=== PATIENT | female | born 1980 | race Caucasian/White ===

== ENCOUNTER 2017-05-12 13:13 | Emergency (ER) | payer OTHER ==
[2017-05-12 13:14] VITALS: BMI 26.5
[2017-05-12 13:33] VITALS: BP 103/68; PULSE 86; RESP 16; TEMP 98.3; O2SAT 100
--- NOTE | 2017-05-12 14:18 | C.PDOC ---
History Of Present Illness A 37 year old female, who is 7 months , who denies any significant past medical history, presents to the emergency department for itchy throat, throat pain, headache, and a subjective fever, which began about 2 days ago. The patient denies any abdominal pain, nausea, dysuria, hematuria, or any other complaints at this time. Time Seen by Provider: 05/12/17 13:55 Chief Complaint (Nursing): Flu-like Symptoms Past Medical History Vital Signs: Last Vital Signs Temp 98.3 F 05/12/17 13:33 Pulse 86 05/12/17 13:33 Resp 16 05/12/17 13:33 BP 103/68 05/12/17 13:33 Pulse Ox 100 05/12/17 14:57 Family History: States: No Known Family Hx - Social History Hx Alcohol Use: No Hx Substance Use: No - Immunization History Hx Tetanus Toxoid Vaccination: No Hx Influenza Vaccination: No Hx Pneumococcal Vaccination: No Physical Exam - Physical Exam Additional Physical Exam Comments: Constitutional: No acute distress. Head: Normocephalic. Atraumatic. Eyes: PERRL. ENT: Moist mucous membranes. No erythema. No exudates. No lymphadenopathy. Neck: Supple. No neck stiffness/nuchal rigidity Cardiovascular: Regular rate. Radial pulse 2+ bilaterally. Chest: No tenderness. Respiratory: Clear to auscultation bilaterally. GI: Soft. Nontender. Non distended. Back: No CVA tenderness. Musculoskeletal: No tenderness or swelling of extremities. Skin: No rash. Neurologic: Alert, no focal deficit. ED Course And Treatment O2 Sat by Pulse Oximetry: 100 Medical Decision Making Medical Decision Making: Educated that acetaminophen is safe in . First dose administered here. Discharged home, f/u primary care, return to ED for worsening pain, fever, dyspnea, or any other problem. Disposition - Disposition Disposition: HOME/ ROUTINE Disposition Time: 14:18 Condition: STABLE Prescriptions: Acetaminophen [Tylenol 325mg tab] 2 tab PO Q4H #30 tab Instructions: Upper Respiratory Infection (ED) Forms: [facility] (Indonesian) - Clinical Impression Clinical Impression: URI (upper respiratory infection) - Scribe Statement The provider has reviewed the documentation as recorded by the Scribe Mimi James All medical record entries made by the Scribe were at my direction and personally dictated by me. I have reviewed the chart and agree that the record accurately reflects my personal performance of the history, physical exam, medical decision making, and the department course for this patient. I have also personally directed, reviewed, and agree with the discharge instructions and disposition.
== END 2017-05-12 14:32 | disposition home or self-care (01) ==
LOC: C.ER 13:13
DX: J06.9 Acute upper respiratory infection, unspecified (principal)

== ENCOUNTER 2017-08-13 15:41 | Emergency (ER) | payer OTHER ==
[2017-07-12 13:50] VITALS: BMI 28.1
[2017-08-13 16:34] LABS: SQUAMOUS EPITHIAL 1 /hpf (0-5); URINE BACTERIA FEW (<OCC); URINE BILIRUBIN NEGATIVE (NEGATIVE); URINE BLOOD 2+ (NEGATIVE); URINE CLARITY Clear (Clear); URINE COLOR Yellow (YELLOW); URINE GLUCOSE (UA) NORMAL (Normal); URINE LEUKOCYTE ESTERASE TRACE Leu/uL (Negative); URINE NITRATE NEGATIVE (NEGATIVE); URINE PROTEIN NEGATIVE (NEGATIVE); URINE UROBILINOGEN NORMAL mg/dL (0.2-1.0)
[2017-08-13] MEDS ORDERED: Lactated Ringer's 1,000 ML IV SCH (16:45)
[2017-08-13] MEDS ORDERED: Dextrose 5%/Lactated Ringer's 1,000 ML IV SCH (17:00)
--- NOTE | 2017-08-13 18:09 | OBHP ---
Datetime: 08/13/2017 17:21 IP Adm Impression: Term, intrauterine IP Admit Plan: Discharge home Admit Comment, IP Provider: CC: Vaginal spotting HPI: Patient is a 37 year old at 40weeks and 1 day with a LMP (11/04/16) and EDC (08/12/17) by S who presents to [facility] with complaints of dark red vaginal spotting that started an hour before comi ng to the hospital. Patient denies contraction, leakage of fluid but admits to movement. 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 Unemployed. Denies current or former hx of tobacco use, ETO H and illicit drug use PE: See above A/P: Patient is a 37 year old at 40weeks and 1 day with a LMP (11/04/16) and EDC (08/12/17) by US: 1. Evaluation 2. UA: Nitrate negative and LE trace 3. LR bolus 4. Plans for NST/Induction for 08/17/16 5. Discharge home: Labor precautions given dr manriquez agrees Extremities - PN: Normal Abdomen - PN: Normal Back - PN: Normal Lungs - PN: Normal Heart - PN: Normal General - PN: Normal FHR - Baseline A Provider: 150 Contraction Comments Provider: irrg Comments, ACOG Physical Exam: Gen: NAD Cardio: RRR, normal S1, S2 Pulm: CTA bilaterally Abdomen: Soft, gravid, FH: 40CM Ext: No edema, no cyanosis and no clubbing EFM: FHR: 150, + accels TOCO: Irregular Gestation - Est Wks by US: 40.1 Pool Provider: Negative EGA AdmitDate IP: 40.1 Vital Signs Provider: Reviewed; Within Normal Limits IP Chief Complaint: Vaginal bleeding NICHD Variability Prov Fetus A: Moderate 6-25bpm NICHD Accel Fetus A IP Provider: 15X15 NICHD Decel Fetus A IP Provider: None Dilatation, Provider: 2 Effacement, Provider: 50 Station, Provider: -3
--- NOTE | 2017-08-13 18:13 | OBDCSUM ---
Datetime: 08/13/2017 17:48 Discharged to, Provider: Home Disch Instr Activity: Normal activity; May Shower Disch Instr Diet: Regular Discharge Time: 08/13/2017 17:49 Follow up in weeks, Provider: clinic Disch Referrals: None Disch Activity Restrictions: No sexual activity; Nothing in vagina - [place], tampons, douche Discharge Comment, Provider: labor given po hyra induction on 08/17/17 Discharge Diagnosis Prov Other: 40week nst vb
[2017-08-13 22:24] VITALS: BP 107/58; PULSE 72; RESP 18; TEMP 98.3
== END 2017-08-13 18:04 | disposition home or self-care (01) ==
LOC: EDBD → C.EROB 15:41
DX: O26.853 Spotting complicating pregnancy, third trimester (principal); Z3A.40 40 weeks gestation of pregnancy
CPT/HCPCS: 81001; 99283; J7120

== ENCOUNTER 2017-08-16 19:53 | Inpatient (IN) | payer MEDICAID, OTHER ==
[2017-07-12 13:50] VITALS: BMI 28.1
[2017-08-16] MEDS ORDERED: Lactated Ringer's 1,000 ML IV SCH (20:15)
[2017-08-16 20:39] LABS: BASO # 0.1 K/uL (0.0-0.2); BASO % 0.4 % (0.0-2.0); EOS % 0.3 % (0.0-4.0); HEMOGLOBIN 12.7 g/dL (11.0-16.0); LYMPH # 2.4 K/uL (1.0-4.3); LYMPH % 18.8 % (20.0-40.0); MEAN CELL VOLUME 90.6 fL (81.0-99.0); MEAN CORPUSCULAR HEMOGLOBIN 31.1 pg (27.0-31.0); MEAN CORPUSCULAR HGB CONC 34.3 g/dL (33.0-37.0); MEAN PLATELET VOLUME 9.3 fL (7.2-11.7); MONO # 0.8 K/uL (0.0-0.8); MONO % 6.5 % (0.0-10.0); NEUT # 9.5 K/uL (1.8-7.0); RBC 4.07 Mil/uL (3.80-5.20); RED CELL DISTRIBUTION WIDTH 15.5 % (11.5-14.5); WHITE BLOOD COUNT 12.8 K/uL (4.8-10.8)
[2017-08-16 20:44] LABS: SQUAMOUS EPITHIAL 4 /hpf (0-5); URINE BACTERIA OCC (<OCC); URINE BILIRUBIN NEGATIVE (NEGATIVE); URINE BLOOD NEGATIVE (NEGATIVE); URINE CLARITY Clear (Clear); URINE COLOR Yellow (YELLOW); URINE GLUCOSE (UA) NORMAL (Normal); URINE LEUKOCYTE ESTERASE NEG Leu/uL (Negative); URINE NITRATE NEGATIVE (NEGATIVE); URINE PROTEIN NEGATIVE (NEGATIVE); URINE UROBILINOGEN NORMAL mg/dL (0.2-1.0)
[2017-08-16 20:51] LABS: ALBUMIN 3.8 g/dL (3.5-5.0); ALT/SGPT 17 U/L (9-52); AST/SGOT 19 U/L (14-36); BLOOD UREA NITROGEN 15 mg/dL (7-17); CALCIUM 8.6 mg/dl (8.6-10.4); GFR AFRICAN-AMERICAN > 60; GFR NON-AFRICAN AMERICAN > 60
[2017-08-16] MEDS ORDERED: Fentanyl/Bupivacaine HCl 250 ML EPI ONE (21:02)
[2017-08-16] MEDS ORDERED: Bupivacaine HCl 0.25% PF (10 ml) Inj ONE (21:02)
[2017-08-16] MEDS ORDERED: Benzocaine/Menthol 20%-0.5% Topical Spray (60 ml) TOP PRN (23:30)
[2017-08-16] MEDS ORDERED: Oxycodone/Acetaminophen 5/325 mg Tab PO PRN (23:30)
[2017-08-16] MEDS ORDERED: Lidocaine 2% Inj (20ml) ONE (23:39)
--- NOTE | 2017-08-17 00:11 | OBADHP ---
Datetime: 08/16/2017 21:45 FHR - Baseline A Provider: 160 Amniotic Fluid Color, Provider: Clear Membranes, Provider: Ruptured Gestation - Est Wks by US: 40.4 NICHD Variability Prov Fetus A: Moderate 6-25bpm NICHD Accel Fetus A IP Provider: 10X10 Dilatation, Provider: 8 Effacement, Provider: 100 Station, Provider: 0 Datetime: 08/16/2017 20:13 Admit Comment, IP Provider: HPI: Patient is a 37 year old at 40weeks and 4 day with a LMP (11/04/16) and EDC (08/12/17) by U S who presents to [facility] with complaints of contractions that started at 4pm today but increased in int ensity around 7pm. Patient admits to movement but denies vaginal bleeding and abnormal vaginal discharge. 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 Unemployed. Denies current or former hx of tobacco use, ETO H and illicit drug use VS: BP: 129/83, HR: 100 Physical Examination: See above A/P: 37 year old at 40weeks and 4 day with a LMP (11/04/16) and EDC (08/12/17) by US who pr esents to [facility] with complaints of contractions : 1. Stable, Afebrile 2. CEFM and TOCO 3. Admission labs: see orders 4. Anesthesia consult 5. Expectant management 6. Plans discussed with attending, Dr. Virgen Maciel DO, PGY-1 Pt seen and evaluated with the resident and agrees with the above. Extremities - PN: Normal Abdomen - PN: Normal Lungs - PN: Normal Heart - PN: Normal General - PN: Normal Comments, ACOG Physical Exam: Gen: NAD Cardio: RRR, normal S1, S2 Pulm: CTA bilaterally Abdomen: Soft, gravid, FH: 40CM Ext: No edema, no cyanosis and no clubbing EFM: FHR: 150, + accels TOCO: Regular Vital Signs Provider: Reviewed; Within Normal Limits IP Chief Complaint: Uterine contractions; Maternal discomfort NICHD Decel Fetus A IP Provider: None EGA AdmitDate IP: 40.4 IP Adm Impression: Term, intrauterine ; Active labor IP Admit Plan: Admit to unit; Initiate labor protocol Datetime: 08/13/2017 17:21 Back - PN: Normal Contraction Comments Provider: irrg Adeel Provider: Negative
[2017-08-17 07:54] LABS: BASO % 0.2 % (0.0-2.0); EOS % 0.1 % (0.0-4.0); HEMOGLOBIN 11.2 g/dL (11.0-16.0); LYMPH # 2.3 K/uL (1.0-4.3); LYMPH % 16.2 % (20.0-40.0); MEAN CORPUSCULAR HEMOGLOBIN 31.5 pg (27.0-31.0); MEAN CORPUSCULAR HGB CONC 34.7 g/dL (33.0-37.0); MEAN PLATELET VOLUME 9.2 fL (7.2-11.7); MONO # 0.8 K/uL (0.0-0.8); NEUT # 10.9 K/uL (1.8-7.0); NEUT % 77.5 % (50.0-75.0); RBC 3.54 Mil/uL (3.80-5.20); RED CELL DISTRIBUTION WIDTH 15.3 % (11.5-14.5); WHITE BLOOD COUNT 14.1 K/uL (4.8-10.8)
[2017-08-17] MEDS ORDERED: Benzocaine/Menthol 20%-0.5% Topical Spray (60 ml) TOP SCH (09:00)
--- NOTE | 2017-08-17 09:58 | OBPPN ---
Datetime: 08/17/2017 08:57 PP Pain Prov: Within normal limits PP Breasts Prov: Normal PP Heart Prov: Normal PP Lungs Prov: Normal PP Abdomen/Uterus Prov: Normal PP Lochia Prov: Normal PP Vulva/Perineum Prov: Normal PP CVA Tenderness Prov: Normal PP Extremities Prov: Normal PP C/S Incision Prov: Not Applicable PP Progress Prov: Normal PP Comments Phys Exam Prov: Abdomen: obese. soft, (+) BS. Fundus firm, mobile, non tender at umbili cus. Mild lochia rubra Extremities: no calf tenderness PP Impression Prov: Normal progression PP Plan Prov: Continue present management PP Progress Note Prov: Patient was seen and examined at bedside. Patient is doing well and has 3-4/1 0 vaginal pain due to 2nd degree repair. Patient reports mild lochia, passing flatus and urinating wi thout difficulty. Patient denies BM, fever, chills, nausea, vomiting, abdominal pain and calf tendern ess. Breast feeding and bottle feeding Labs: 12.8>12.7/36.9<239, 14.1>11.2/32.2<186 O+, Rubella non-immune VS: BP: 124/79, HR: 90, Temp: 99.1 0+, Rubella Non-immune, need MMR vaccine prior to discharge Physical Examination: Gen: NAD Cardio: RRR, normal S1, S2 Pulm: CTA bilaterally Abdomen: Soft, non-tender, fundus is firm and one finger breath below the umbilicus Ext: No edema, no clubbing and no cyanosis A/P: 37 year old at 40 weeks and 4 days who is now s/p with 2nd degree perine al laceration: 1. Stable, Afebrile 2. Pain control with motrin and percocet 3. Encourage ambulation and hydration 4. Encourage breast feeding 5. Will need MMR prior to discharge 6. Anticipate discharge tomorrow 7. Plans discussed with attending, Dr. Boaz Maciel DO, PGY-1 Attending Note: patient seen and evaluated with Resident. I agree with the above. Patient is clin ically stable. Plan: 1) as above Vital Signs Provider PP: Reviewed; Within Normal Limits
--- NOTE | 2017-08-17 13:30 | OBDS ---
DELIVERY PERSONNEL Delivery Doctor: Elham New MD Scrub Nurse: Shila Hyman Carton Stenciler: Luly Cadet RN Anesthesiologist: MATERNAL INFORMATION Delivery Anesthesia: Epidural Medications in Delivery: PITOCIN Estimated Blood Loss (ml): 200 Placenta Cultured: No Maternal Complications: None RN Comments: LIVE BABY BOY 9/9 SKIN TO SKIN DONE BREAST FEEDING STARTED Provider Comments: This 37 year old now p2002 delivered a viable male via over a 2nd de gree perineal laceration on 08/16/17 at 23:05. The 's head was delivered in a controlled manner. Tight nuchal X2 was clamped and cut. The infant's shoulders were delivered atraumatically. The infan t's body was delivered without difficulty. Infant's mouth and nose was suctioned with bulb syringe. C ord blood was collected. 's was placed on the mother's abdomen. An intact placenta with 3VC was delivered. Uterus was firm with fundal massage and administration of IV pitocin. EBL 200ML. The infa nt wieghed 6lbs 4oz. Apgars were 9 and 9. Mom and baby are recovering in a stable condition. All spon ge counts and instruments were correct. Dr. New was present for the entire delivery. Delivery was conducted with the resident and I agree with the above. LABOR SUMMARY EDC: 08/12/2017 00:00 No. Babies in Womb: 1 LABOR INFORMATION Onset of Labor: 08/16/2017 19:00 Group B Beta Strep: Negative STAGES OF LABOR Stage 3 hrs: -47 Stage 3 min: -57 Total Time in Labor hrs: -43 Total Time in Labor min: -52 VAGINAL DELIVERY Episiotomy: None Laceration Extension: Second Degree Laceration Type: Perineal Other Laceration: 2.0 CHROMIC Laceration Repair: Yes Initial Vag Sponge Count: 10 Initial Vag Sharps Count: 0 Sponge Count Correct: Yes BABY A INFORMATION Delivery Date/Time: 08/16/2017 23:05 Method of Delivery: Vaginal Born in Route : No : N/A Forceps: N/A Vacuum Extraction: N/A Shoulder Dystocia : No SHOULDER DYSTOCIA BABY A Infant Delivery Date/Time: 08/16/2017 23:05 PRESENTATION/POSITION BABY A Presentation: Cephalic Cephalic Presentation: Vertex Vertex Position: Left Occipital Anterior Breech Presentation: N/A PLACENTA INFORMATION BABY A Placenta Delivery Time : 08/14/2017 23:08 Placenta Method of Delivery: Spontaneous Placenta Status: Delivered SCORES BABY A Heart Rate 1 min: >100 bpm Resp Effort 1 min: Good Cry Reflex Irritability 1 min: Cough or Sneeze or Pulls Away Muscle Tone 1 min: Active Motion Color 1 min: Body [place], Extremities Blue Resuscitation Effort 1 min: Tactile Stimulation SCORE 1 MIN: 9 Heart Rate 5 min: >100 bpm Resp Effort 5 min: Good Cry Reflex Irritability 5 min: Cough or Sneeze or Pulls Away Muscle Tone 5 min: Active Motion Color 5 min: Body [place], Extremities Blue Resuscitation Effort 5 min: Tactile Stimulation SCORE 5 MIN: 9 INFORMATION BABY A Gestational Age at Delivery: 40.4 Gestational Status: Term Infant Outcome : Liveborn Condition : Stable Sex: Male IDENTIFICATION/MEDS BABY A ID Band Number: [id number] Sensor Number: [id number] WEIGHT/LENGTH BABY A Birthweight (gms): 2830 Weight (lb): 6 Weight (oz): 4 Infant Length Inches: 19.50 Infant Length cms: 49.5 CORD INFORMATION BABY A No. Cord Vessels: 3 Nuchal Cord : Around Neck x2, Tight Cord Blood Taken: Yes Suction: None ASSESSMENT BABY A Infant Complications: None Physical Findings at Delivery: Within Normal Limits Respirations: Appears Normal Nurse Advisor/ALS Called : No Care By: Olivia MELGAR RN Transferred To: Remains with Mother
[2017-08-17] MEDS ORDERED: Benzocaine/Menthol 20%-0.5% Topical Spray (60 ml) EXT PRN (15:34)
[2017-08-18] MEDS ORDERED: Rubella Virus Vaccine Inj SC ONE (08:15)
[2017-08-18 08:31] VITALS: O2SAT 99
[2017-08-18] MEDS ORDERED: Measles, Mumps, and Rubella 0.5 ML VIAL SC ONE (09:00)
--- NOTE | 2017-08-18 09:24 | OBPPN ---
Datetime: 08/18/2017 09:20 PP Pain Prov: Within normal limits PP Nausea Prov: Denies PP Flatus Prov: Yes PP Breasts Prov: Normal PP Heart Prov: Normal PP Lungs Prov: Normal PP Abdomen/Uterus Prov: Normal PP Lochia Prov: Normal PP Vulva/Perineum Prov: Normal PP CVA Tenderness Prov: Normal PP Extremities Prov: Normal PP Comments Phys Exam Prov: Abd: Soft, NT, BS - present UT- Firm PP Impression Prov: Normal progression PP Plan Prov: Discharge PP Progress Note Prov: S/P , Clinically Stable Plan: D/C Home. Vital Signs Provider PP: Reviewed
--- NOTE | 2017-08-18 09:26 | OBDCSUM ---
Datetime: 08/18/2017 09:23 Discharged to, Provider: Home Follow up at, Provider: [facility] Disch Instr Activity: Normal activity Disch Instr Diet: Regular Discharge Instructions, Provider: Routine instructions given Discharge Diagnosis, Provider: Term Delivered Discharge Time: 08/18/2017 09:23 Follow up in weeks, Provider: 6 weeks Disch Referrals: None Contraception discussed, Prov: Yes Discharge Comment, Provider: S/P Uncomplicated , Clinically Stable. Discharge Diagnosis Prov Other: S/P Uncomplicated , Clinically Stable.
[2017-08-18 22:00] VITALS: BP 109/65; PULSE 93; RESP 18; TEMP 97.5
== END 2017-08-18 14:15 | disposition home or self-care (01) | DRG 775 ==
LOC: C.EROB 19:53 → C.4D 20:05 → C.4M 08-17 02:20 → UNDODISIN 08-18 14:22
PROVIDERS: ADMIT Obstetrics & Gynecology; ATTEND Obstetrics & Gynecology
PROC: 10E0XZZ Delivery of Products of Conception, External Approach (ICD-10-PCS; principal; 2017-08-17)
PROC: 0KQM0ZZ Repair Perineum Muscle, Open Approach (ICD-10-PCS; 2017-08-17)
DX: O48.0 Post-term pregnancy (principal); O69.1XX0 Labor and delivery complicated by cord around neck, with compression, not applicable or unspecified; Z37.0 Single live birth; Z3A.40 40 weeks gestation of pregnancy; O70.1 Second degree perineal laceration during delivery

== ENCOUNTER 2017-10-30 13:12 | Emergency (ER) | payer OTHER ==
[2017-10-30 13:12] VITALS: BMI 28.1
[2017-10-30 14:34] VITALS: BP 113/76; PULSE 86; RESP 17; TEMP 98.2; O2SAT 100
[2017-10-30 14:56] LABS: SQUAMOUS EPITHIAL 5 /hpf (0-5); URINE BACTERIA MOD (<OCC); URINE BILIRUBIN NEGATIVE (NEGATIVE); URINE BLOOD NEGATIVE (NEGATIVE); URINE CLARITY Hazy (Clear); URINE COLOR Yellow (YELLOW); URINE GLUCOSE (UA) NORMAL (Normal); URINE LEUKOCYTE ESTERASE 1+ Leu/uL (Negative); URINE PROTEIN NEGATIVE (NEGATIVE); URINE UROBILINOGEN NORMAL mg/dL (0.2-1.0)
--- NOTE | 2017-10-30 15:01 | C.PDOC ---
History Of Present Illness 37 y/o female with 2.5 month old child c/o pain to site of episitomy for last 2 days. pt not sexually active since . denies urinary symptoms. denies constipation, last bm today. no fever. no abdominal pain. pt is breast feeding. pt feels a bump on thigh and 'skin hanging out' near rectum. Time Seen by Provider: 10/30/17 13:58 Chief Complaint (Nursing): Female Genitourinary History Per: Patient History/Exam Limitations: no limitations Onset/Duration Of Symptoms: Days (2) Current Symptoms Are (Timing): Still Present Severity: Mild Quality Of Discomfort: "Pain" Associated Symptoms: denies: Fever, Chills, Vomiting, Diarrhea Past Medical History Reviewed: Historical Data, Nursing Documentation, Vital Signs Vital Signs: Last Vital Signs Temp 98.2 F 10/30/17 14:33 Pulse 86 10/30/17 14:33 Resp 17 10/30/17 14:33 BP 113/76 10/30/17 14:33 Pulse Ox 100 11/02/17 13:14 - Medical History PMH: No Chronic Diseases Denies: Depression, Diabetes, HTN - [facility] Procedures DELIVERY OF PRODUCTS OF CONCEPTION, EXTERNAL APPROACH (08/16/17) REPAIR PERINEUM MUSCLE, OPEN APPROACH (08/16/17) Family History: States: Unknown Family Hx - Social History Hx Tobacco Use: No Hx Alcohol Use: No Hx Substance Use: No - Immunization History Hx Tetanus Toxoid Vaccination: No Hx Influenza Vaccination: No Hx Pneumococcal Vaccination: No Review Of Systems Constitutional: Negative for: Fever, Chills Gastrointestinal: Negative for: Abdominal Pain Genitourinary: Positive for: Other ('skin hanging out"). Negative for: Dysuria , Frequency, Vaginal Discharge, Vaginal Bleeding Skin: Negative for: Rash Physical Exam - Physical Exam Appears: Non-toxic, No Acute Distress Skin: Warm, Dry Head: Atraumatic, Normacephalic Gastrointestinal/Abdominal: Bowel Sounds, Soft, No Tenderness Rectal: Hemorrhoids (tender hemorrhoid at 12 o'clock position of anus, not thrombosed. pea sized mass tender to palp on left inner thigh with no surrounding erythema, warmth or swelling ) Pelvic: Normal External Exam, Vaginal Discharge (scant whitish discharge seen at introitus) Neurological/Psych: Oriented x3, Normal Speech, Normal Cognition ED Course And Treatment O2 Sat by Pulse Oximetry: 100 Medical Decision Making Medical Decision Making: pt with whitish d/c at introitus, +1le, mod bacteria; will tx for uti, prep h for hemorrhoid, tylenol for pain and recovery manager f/u Disposition - Disposition Referrals: Luis New [Staff Provider] - Disposition: HOME/ ROUTINE Disposition Time: 15:05 Condition: GOOD Additional Instructions: Please do not strain when having a bowel movement. Apply preparation H to rectal area for pain. Tylenol for pain. Take Keflex for urine infection. Follow up with Dr John as soon as possible. Prescriptions: Acetaminophen [Tylenol 325mg tab] 650 mg PO Q6 #30 tab Cephalexin [Keflex] 500 mg PO BID #14 capsule Phenyleph/Pramoxin/Glycr/W.pet [Preparation H Cream] 1 applic RC BID #26 cream..g. Instructions: Hemorrhoids (DC), Urinary Tract Infection, Adult (DC) Forms: [facility] (Angolan), General Discharge Instructions - Clinical Impression Clinical Impression: Hemorrhoids, UTI (urinary tract infection)
== END 2017-10-30 15:15 | disposition home or self-care (01) ==
LOC: C.ER 13:12
DX: K64.9 Unspecified hemorrhoids (principal); N39.0 Urinary tract infection, site not specified